=== PATIENT | male | born 1950 | race Caucasian/White ===

== ENCOUNTER 2022-04-22 15:23 | Emergency (ER) | payer MEDICARE, BC ==
[2022-04-22] MEDS ORDERED: cefTRIAXone 1 GM Vial IM ONE (17:39)
[2022-04-22] MEDS ORDERED: Lidocaine 1% 5 ML VIAL INJECT ONE (18:37)
== END 2022-04-22 19:05 | disposition home or self-care (01) ==
LOC: JP.ED 15:23
DX: L03.115 Cellulitis of right lower limb (principal); I10 Essential (primary) hypertension; E78.00 Pure hypercholesterolemia, unspecified; E11.9 Type 2 diabetes mellitus without complications; Z79.84 Long term (current) use of oral hypoglycemic drugs; Z79.899 Other long term (current) drug therapy
CPT/HCPCS: 96372; 99281; 99283; J0696